=== PATIENT | female | born 1980 ===

== ENCOUNTER 2017-04-09 23:29 | Emergency (ER) | payer MEDICAID ==
[2017-04-09 23:35] VITALS: BP 120/74; PULSE 86; RESP 16; TEMP 98.2; O2SAT 100
[2017-04-09] MEDS ORDERED: Naproxen 500 MG TAB PO ONE (23:55)
[2017-04-10] MEDS ORDERED: Naproxen 500 MG TAB PO ONE
--- NOTE | 2017-04-10 00:09 | ED PDOC ---
HPI: General Adult Time Seen by Provider: 04/09/17 23:39 Chief Complaint (Nursing): Lower Extremity Problem/Injury History Per: Patient Additional Complaint(s): Pt. states for the past 2 weeks she's had atraumatic R foot pain x 2 weeks. Pain is worsened with movement. Denies trauma, fever, rash, numbness, tingling. Past Medical History Reviewed: Historical Data, Nursing Documentation, Vital Signs Vital Signs: Last Vital Signs Temp 98.2 F 04/09/17 23:33 Pulse 86 04/09/17 23:33 Resp 16 04/09/17 23:33 BP 120/74 04/09/17 23:33 Pulse Ox 100 04/10/17 00:10 - Surgical History Surgical History: No Surg Hx - Family History Family History: States: No Known Family Hx - Home Medications Home Medications: Ambulatory Orders Medication Instructions Recorded Naproxen [Naprosyn] 500 mg PO BID PRN #30 tab 04/10/17 - Allergies Allergies/Adverse Reactions: Allergies Allergy/AdvReac Type Severity Reaction Status Date / Time No Known Allergies Allergy Verified 11/03/16 19:49 Review of Systems ROS Statement: Except As Marked, All Systems Reviewed And Found Negative Musculoskeletal: Positive for: Foot Pain Physical Exam - Physical Exam Appears: Positive for: Well, Non-toxic, No Acute Distress Skin: Positive for: Normal Color, Warm. Negative for: Rash Pulses-Dorsalis Pedis (L): 2+ Pulses-Dorsalis Pedis (R): 2+ Extremity: Positive for: Other (Minimal swelling and tenderness or dorsum of R foot without warmth or erythema or break in skin integrity) - ECG O2 Sat by Pulse Oximetry: 100 - Radiology X-Ray: Interpreted by Me (Foot x-ray) X-Ray Interpretation: No Acute Disease - Progress ED Course And Treament: Naproxen 500mg PO given. Foot x-ray ordered. Disposition - Clinical Impression Clinical Impression: Foot pain - Patient ED Disposition Is Patient to be Admitted: No - Disposition Referrals: Podiatry Clinic [Outside] Disposition: Routine/Home Disposition Time: 00:43 Condition: STABLE Prescriptions: Naproxen [Naprosyn] 500 mg PO BID PRN #30 tab PRN Reason: Pain Instructions: Arthralgia (ED)
--- NOTE | 2017-04-10 11:01 | RAD ---
PROCEDURE: Right Foot Radiographs. HISTORY: pain COMPARISON: None available. FINDINGS: BONES: No acute displaced fracture. JOINTS: No dislocation. SOFT TISSUES: Unremarkable. No evidence of radiopaque foreign body. OTHER FINDINGS: None. IMPRESSION: No acute displaced fracture, dislocation, or significant joint effusion identified. If symptoms persist, or if there is continued clinical concern, x-ray follow-up in 7-10 days should be considered.
== END 2017-04-10 00:53 | disposition home or self-care (01) ==
LOC: H.ER 23:29
DX: M79.671 Pain in right foot (principal)